=== PATIENT | male | born 1980 | race Caucasian/White ===

== ENCOUNTER → 2016-06-12 | Outpatient (CLI) | payer OTHER | LOC: SLEEP 21:30 | DX: G47.33 Obstructive sleep apnea (adult) (pediatric) (principal) | CPT/HCPCS: 95810 ==

== ENCOUNTER → 2016-07-21 | Outpatient (CLI) | payer OTHER | LOC: CT 07-20 09:30 | DX: J32.9 Chronic sinusitis, unspecified (principal); R51 Headache; R43.8 Other disturbances of smell and taste | CPT/HCPCS: 70486 ==